=== PATIENT | male | born 1970 | race Caucasian/White ===

== ENCOUNTER 2021-08-20 15:54 | Observation (INO) | payer OTHER, SELFPAY ==
[2021-08-19 08:17] VITALS: BMI 33.2
--- NOTE | 2021-08-19 08:39 | PCM.HP.BLA ---
History and Physical Date of Admission: 08/20/21 [facility] [address] [place] [address] [phone] OFFICE VISITDate of Service: 08/13/21 MR#:[id number]:[id number]: CONNIE GRIMALDORep #:[id number]:1970 Provider: RODOLFO Robledo/Sex: 50/M Location[facility] [place]Signed HPI HPI History of Present Illness Details: This is a 51-year-old gentleman that presents here today for an updated history and physical for an upcoming heart catheterization. He does have a history of coronary artery disease post non-ST myocardial elevation with post RCA PTCA/EBONY at [facility] in November 2019. He also has a history of aortic valve stenosis, hypertension and hyperlipidemia. Patient did undergo a nuclear stress test at an outside hospital which demonstrated positive ECG exercise tolerance test; positive stress myocardial perfusion study with moderate reversible inferolateral perfusion defect compatible with myocardial ischemia. He is scheduled to undergo a heart catheterization on August 20, 2021. Pt notes that his brother recently had an CA. This reminded him that he was due to have stress test done. He then notes that he is now having symptoms. This has been getting worse over the last year and is why we talked about a stress test at his last OV. 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 He does have chest tightness one/off. It is a 3-4/10. It lasts a few minutes after he rests. It is always with activity. Symptoms are similar to what he had with his previous NSTEMI but not as severe. He does not have any lightheadedness/dizziness. He does not have any palpitations. He does not have any edema or claudication. 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: No Accompanied by: None Is patient in pain?: No Allergies No Known Allergies Allergy (Verified 08/13/21 11:30) Medications aspirin 81 mg tablet,delayed release 81 mg PO DAILY 04/18/20 [History Confirmed 08/13/21] lisinopril 20 mg tablet 20 mg PO DAILY 04/19/20 [History Confirmed 08/13/21] scopolamine base 1 mg over 3 days transdermal patch 1 patch TRANSDERMAL Q3D PRN #4 ea 11/01/20 [Rx Confirmed 12/28/20] metoprolol succinate 25 mg tablet,extended release 24 hr 25 mg PO DAILY #90 tab 12/17/20 [Rx Confirmed 08/13/21] nitroglycerin 0.4 mg sublingual tablet 0.4 mg SUBLINGUAL Q5-15M PRN #25 tab 12/17/20 [Rx Confirmed 08/13/21] prasugrel 10 mg tablet 10 mg PO DAILY #90 tab 01/29/21 [Rx Confirmed 08/13/21] PFSH Medical History Aortic valve stenosis Atherosclerotic heart disease of [place] coronary artery without angina pectoris Carpal tunnel syndrome Essential hypertension History of left heart catheterization (LHC) (~11/18/19) History of non-ST elevation myocardial infarction (NSTEMI) Nonrheumatic aortic (valve) stenosis Presence of stent in coronary artery (~11/18/19) Pure hypercholesterolemia Surgical History History of tonsillectomy Presence of coronary angioplasty implant and graft (~11/18/19) Family History Father CAD (coronary artery disease) Mother CAD (coronary artery disease) Social History Smoking Status: Former smoker alcohol intake: current details: 2 drinks per week substance use type: does not use caffeine: Yes (occasional) ROS Const Const: Negative for fatigue, weakness, headache(s), frequent falls, excessive sweating, weight gain or weight loss Eyes Eyes: Negative for blind spots, loss of peripheral vision, transient loss of vision, blurry vision, change in vision or double vision ENT ENT: Negative for headache(s), dizziness, tinnitus, Nosebleed/epistaxis or balance problems Cardio Chest Pain: Yes Palpitations: No Edema: None Muscle aches with walking: None Resp Respiratory: Positive for SOB with activity; Negative for SOB at rest, SOB orthopnea\SOB lying down or Cough GI GI: Negative nausea, vomiting, heartburn, bloating, vomiting blood/hematemesis, bright, red blood in stools or black,tarry stools : Negative for hematuria Musc Musc: Negative for muscle aches/ myalgia, muscle weakness, joint pain or balance problems Skin Skin: Negative rash or wounds Neuro Neuro: Negative for dizziness, lightheadedness, near syncope, syncope, orthostatic symptoms, frequent falls, headache(s), weakness, confusion, memory loss, restless legs, blurry vision or double vision Colt Hematologic/Lymphatic: Negative for easy bleeding or easy bruising Endo Endo: Negative for fatigue, cold intolerance, heat intolerance or excessive sweating Psych Psych: Negative for anxiety or depression Allergy Allergy/Immunology: Negative for rash Cardiology Exam Const Appearance: cooperative, healthy appearing, comfortable, no acute distress, well developed and well groomed Nutritional Appearance: overweight Orientation: alert, awake and oriented x3 Head Head: normal to inspection, normocephalic and atraumatic Ears: hearing grossly normal bilaterally Nose: external nose normal Face and Sinus: face symmetric Eyes Eyelids: eyelids normal Conjunctivae: conjunctivae normal Pupils: PERRL EOM: EOM intact bilaterally Neck Neck: normal visual inspection and full ROM Carotids: normal carotid upstroke Chest Chest inspection: normal inspection of the chest, symmetric chest movement and normal respiratory effort Auscultation: Bilateral: Clear to Auscultation Cardio Palpation: normal PMI Rate: regular rate Rhythm: regular rhythm Heart sounds: S1 normal and S2 normal GI GI: normal to inspection, soft and bowel sounds diminished Neuro General: patient alert, patient awake, patient oriented x3 and moves all extremities Skin Skin: no rashes or lesions noted Extremities Pulses: Normal: Right Radial Pulse and Left Radial Pulse Lower Extremity Edema: None: Bilateral Psych Psychological: normal affect Supplemental Info Supplemental Information Labs: No Data to Display Diagnostics: Electrocardiogram Pulmonary: No Data to Display Assessment and Plan Assessment and Plan (1) Atherosclerotic heart disease of [place] coronary artery without angina pectoris: Status: Chronic Qualifiers: [place] vs. transplanted heart: [place] heart Qualified Code(s): I25.10 - Atherosclerotic heart disease of [place] coronary artery without angina pectoris Orders: Orders: Basic Metabolic Profile (BMP) 08/13/21 Comprehensive Metabolic Profil 08/13/21 Lipid Profile 08/13/21 Prothrombin Time w/INR 08/13/21 CBC W/Diff, Automated 08/13/21 Darian REYNOLDS PA: With pts abnormal stress agustín would like to proceed with Diagnostic heart cath. He will continue with aggressive medical management. Based on cath medications may be adjusted. Patient Instructions: Nothing to eat or drink after midnight With a small sip of water take your morning medications. 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 If you need a stent you will spend the night. Get your labs and CXR done this week. (2) Pure hypercholesterolemia: Status: Chronic Orders: Orders: 12 Lead EKG performed by BMS 08/13/21 Basic Metabolic Profile (BMP) 08/13/21 Comprehensive Metabolic Profil 08/13/21 Lipid Profile 08/13/21 Prothrombin Time w/INR 08/13/21 CBC W/Diff, Automated 08/13/21 (3) Essential hypertension: Status: Chronic Orders: Orders: Basic Metabolic Profile (BMP) 08/13/21 Comprehensive Metabolic Profil 08/13/21 Lipid Profile 08/13/21 Prothrombin Time w/INR 08/13/21 CBC W/Diff, Automated 08/13/21 Darian REYNOLDS, PA: Blood pressure is well controlled on current medications, we do not recommend any changes at this time. (4) Aortic valve stenosis: Status: Inactive Qualifiers: Cardiac valve disease etiology: nonrheumatic Qualified Code(s): I35.0 - Nonrheumatic aortic (valve) stenosis Comment: possible bicuspid aortic valve Orders: Orders: Basic Metabolic Profile (BMP) 08/13/21 Comprehensive Metabolic Profil 08/13/21 Lipid Profile 08/13/21 Prothrombin Time w/INR 08/13/21 CBC W/Diff, Automated 08/13/21 (5) Abnormal stress test: Status: Acute Orders: Orders: Basic Metabolic Profile (BMP) 08/13/21 Comprehensive Metabolic Profil 08/13/21 Lipid Profile 08/13/21 Prothrombin Time w/INR 08/13/21 CBC W/Diff, Automated 08/13/21 Chest PA and Lateral 08/13/21 (6) Nonrheumatic aortic (valve) stenosis: Status: Acute Comment: Mild/trileaflet per ECHO 08/06/21 Orders: Orders: Basic Metabolic Profile (BMP) 08/13/21 Comprehensive Metabolic Profil 08/13/21 Lipid Profile 08/13/21 Prothrombin Time w/INR 08/13/21 CBC W/Diff, Automated 08/13/21 Plan - Marilee REYNOLDS, PA: This is mild, will monitor with echocardiograms. Plan Details Additional Comments: Thank you for allowing me to participate in the care of your patient. Please don't hesitate to call if any issues arise. This note was generated using a voice recognition system and there may be incorrect words, spelling or punctuation that were not noted when reviewing the office note prior to saving. Follow Up: 6 Weeks (MMM) Coding Level of Care Code Off vis,est,level 4 Diagnoses Atherosclerotic heart disease of [place] coronary artery without angina pectoris I25.10 [place] vs. transplanted heart: [place] heart Pure hypercholesterolemia E78.00 Essential hypertension I10 Aortic valve stenosis I35.0 Cardiac valve disease etiology: nonrheumatic Abnormal stress test R94.39 Nonrheumatic aortic (valve) stenosis I35.0 Coding Level of Care Code Off vis,est,level 4 Diagnoses Atherosclerotic heart disease of [place] coronary artery without angina pectoris I25.10 [place] vs. transplanted heart: [place] heart Pure hypercholesterolemia E78.00 Essential hypertension I10 Aortic valve stenosis I35.0 Cardiac valve disease etiology: nonrheumatic Abnormal stress test R94.39 Nonrheumatic aortic (valve) stenosis I35.0 08/18/21 1013<Electronically signed by Marilee REYNOLDS>Date Marilee REYNOLDS Cosigner Signature:Date (if applicable) CC: Dr. Hansel [facility] MD ~ Assessment & Plan Addt'l Comments Addendum: Echocardiogram: [facility]: 08/06/2021 Impression: Left ventricle normal systolic function with an estimated LVEF 65% Mild concentric LVH Mild aortic valve stenosis (aortic valve area reported at 1.8 cm?) Addendum: 08-20-2021 I have re-examined the patient. There are no clinical changes since date of exam This note was generated using a voice recognition system and there may be incorrect words, spelling or punctuation that were not noted when reviewing the office note prior to saving.
[2021-08-20] VITALS (15 sets, daily range): BP systolic 106–141; BP diastolic 71–93; PULSE 62–85; RESP 16–18; TEMP 36.7–37; O2SAT 96–98
--- NOTE | 2021-08-20 11:35 | CL.D_ITS ---
Patient Name: CONNIE GRIMALDO Study Date: 08/20/2021 Performing: Jorge Saldana MD Ht: 66.14 inches 168 cm : 1970 Wt: 205.03 lbs 93 kg Age: 50 Gender: male BSA: 2.02 PROCEDURE(S) PERFORMED IC12-(93462/C9600)EBONY W/WO PTCA, SINGLE CORONARY ARTERY DC02-([id number])LHC/COR CLINICAL PROFILE AND INDICATIONS Indications: Worsening Angina Heart Failure: None Stress/Imaging Date: 08/06/2021tress Test with SPECT MPI: Positive Intermediate Risk Angina Classification Anginal Classification w/in 2 Weeks: CCS III CAD Presentations: Other: worsening angina CONCLUSIONS [place] Multivessel CAD RCA: stent: patent RECOMMENDATIONS Risk factor modification Medical therapy Referred for immediate PCI DESCRIPTION OF PROCEDURE The patient arrived to the procedure lab. The risks and benefits of the procedure as well as a full d escription of our services here and current unavailability of surgical backup were fully explained to the patient and/or their significant other prior to the catheterization. The Timeout was completed, verifying the correct patient and procedure. The patient's procedural site was prepped and draped in the usual fashion. Local anesthetic was given subcutaneously to right radial region with Lidocaine 2% . Using a modified Seldinger technique, arterial access was obtained via the right radial artery, a 6 Fr sheath was inserted. Left Coronary Artery selective angiography was performed in multiple views u sing a 5 Fr. JL3.5 catheter. Right Coronary Artery selective angiography was then performed in multip le views using a 5 Fr. JR 4 catheter. Right Coronary Artery selective angiography was then performed in multiple views using a 6 Fr. JR 4-125cm catheter.The arterial sheath was pulled and a TR Band was applied for hemostasis. 12cc air inserted. CORONARY ANGIOGRAPHY DOMINANCE: Right Dominant LEFT HEART ASSESSMENT Left Ventricular Ejection Fraction: Not assessed LEFT MAIN: Angiographically normal LEFT ANTERIOR DESCENDING ARTERY: Mild luminal irregularities MID LAD: 25 % Stenosis DIAGONAL 1: Proximal - diffuse: 25 - 50 % Stenosis CIRCUMFLEX ARTERY: MID CIRC: 90 % Stenosis RIGHT CORONARY ARTERY: PROX RCA: eccentric: 25 % Stenosis DISTAL RCA: Previously placed stent is patent COMPLICATIONS No Complications PROCEDURE MEDICATIONS Fentanyl 50 mcg IV Versed 1 mg IV Fentanyl 50 mcg IV Versed 1 mg IV Oxygen: 2 L/min via nasal cannula Heparin 7000 unit(s) IV 08/20/2021 10:52:52 Nitro 200 mcg IC 08/20/2021 11:23:38 SUMMARY OF HEMODYNAMIC DATA Time AIR REST ECG 08:57:03 Art 122/72 (86) 10:07:51 AO 113/74 (92) SA 10:23:34 Signed By Jorge Saldana MD On 08/20/2021 11:34:36 AM Jorge Saldana MD
--- NOTE | 2021-08-20 11:46 | PCI.CARDCATH ---
PCI Cardiac Cath Report PCI Report: Procedure performed; 1 successful PCI of 90% stenosis of the mid left circumflex artery With predilatation using 2 x 12 mm balloon, followed by placement of drug-eluting stent 3 x 15 mm EBONY/Orsiro with no residual stenosis, post procedure 0% And maintenance of PATY-3 flow pre and post procedure 2. Placement of TR band to the right radial artery to close the right radial artery arteriotomy site Consent; Risk and benefits of procedure explained in detail to the patient elected to proceed informed consent obtained. Preprocedure diagnosis; This is a 50-year-old patient seen and evaluated by his primary switch coupler Dr. Saldana Patient had symptoms of chest pain and has abnormal nuclear stress test which is positive in the left circumflex distribution Patient had history of CAD with prior PCI and stent to the RCA in [place] in 2019 Has been on dual antiplatelet therapy with aspirin and prasugrel Based on his clinical presentation he underwent cardiac catheterization today Finding of cardiac cath reviewed and discussed Left main angiographically normal, left anterior descending had mild luminal irregularity with the mid LAD had around 25% stenosis The diagonal branch D1 proximally had diffuse 25 to 50% stenosis The circumflex artery had a mid circumflex 90% stenosis RCA proximal RCA eccentric 25% stenosis of the distal RCA previously placed stent is patent. Patient also has a echocardiogram which showed LV function is preserved with mild aortic stenosis Interventional plan and equipment: 1. 6 Scottish EBU 3.5 guide catheter 2. 0.014 BMW universal straight 190 cm 3. 0.014 run-through extra floppy 180 cm straight 4. 2 x 12 mm Emerge balloon 5. 3 x 15 mm drug-eluting stent/EBONY/Orsiro Procedure in detail; Patient was given additional 7000 units of heparin in the Fiber Analyst, prior to that he was on prasugrel and aspirin today in addition to 3000 units of heparin was given through the right radial artery sheath We proceed under fluoroscopic guidance with the 6 Scottish 3.5 EBU guide catheter advanced ascending aorta cannulated the left main without difficulty Following this we will proceed with the guidewire across the lesion in 90% stenosis of the mid circumflex artery there was tortuosity on the subclavian right subclavian as well in the right axillary and and in the circumflex artery requiring to use a michael wire which is 0.014 run-through guidewire Then we were able to proceed with the balloon 2 x 12 mm Emerge balloon across the lesion predilated and then followed by placement of a drug-eluting stent 3 x 15mm with 16 DEANNA and achieve an excellent result ACT level acceptable 275. Following this all catheter removed patient remained stable with no complication he does not have any symptoms of chest pain and the cardiac cath lab technologist were within normal Conclusion successful PCI of a focal high-grade stenosis 90% of the mid circumflex with predilatation and placement of drug-eluting stent as a specified Recommendations; patient to continue on DAPT prasugrel 10 mg in addition to low-dose aspirin he been already on prasugrel from 2019 following the stent placement in the RCA at [place]. And he been tolerating it well with no history of bleeding Patient will be scheduled for phase 1 cardiac rehab program 3. Patient to follow-up with his primary switch coupler Dr. Saldana for continuation of cardiac care. Grant Aj MD,FACC,[facility]
--- NOTE | 2021-08-20 12:00 | EKG12_ITS ---
Test Reason : PCI Blood Pressure : / mmHG Vent. Rate : 061 BPM Atrial Rate : 061 BPM P-R Int : 130 ms QRS Dur : 090 ms QT Int : 414 ms P-R-T Axes : 017 056 027 degrees QTc Int : 416 ms Normal sinus rhythm Normal ECG Confirmed by MADDISON HOFF, VARGAS ([id number]), newspaper managing editor ABDON ONEIL ([id number]) on 08/29/2021 1:28:56 PM Referred By: PM Confirmed By:VARGAS WASHBURN MD
[2021-08-20] MEDS: 0.9% Normal Saline 1,000 ML 75 ML IV (12:33)
--- NOTE | 2021-08-20 13:42 | CRPHASE1 ---
Patient Communication Former Patient:: Phase II PHII Cardiac Rehab Discussed with Patient:: Yes Guide to Cardiac Rehab Given to Patient:: Yes Cardiac Rehab Facility Choice List Given to Patient:: Yes Choice Program Other:: Communication Given to Rohit Cameron [employer] Specialist:: Grant Aj Refer Phase II Cardiac Rehab:: Yes Sessions:: 36 sessions - 3 days/wk, 12 weeks Cardiac Rehabilitation Info Cardiac Rehabilitation Program Information: Cardiac Rehabilitation is important for patients like you who are recovering from a heart problem. Cardiac rehabilitation programs are recognized as integral to the continued care of the patient with coronary heart disease. The cardiac rehabilitation program is designed to optimize a patient's physical, psychological, and social functioning. Health patient care provider work in cardiac rehabilitation programs and assist you with getting the treatments you need to get stronger and healthier - like exercise, healthy eating habits, and medications. Cardiac rehabilitation has been show to help people with heart problems live longer and have better life enjoyment than people who do not go to cardiac rehabilitation. Please contact the Cardiac Rehabilitation Program at [facility] at in two weeks if you have not heard from them.
--- NOTE | 2021-08-20 13:44 | CRPH1.INST_ITS ---
General Education CAD and cardiac anatomy and function:: Patient communicates acknowledgment, Family communicates acknowledgment Explanation of diagnoses and procedures:: Patient communicates acknowledgment, Family communicates acknowledgment Sign/Symptoms of [place]:: Patient communicates acknowledgment, Family communicates acknowledgment Antiplatelet therapy: Patient communicates acknowledgment, Family communicates acknowledgment Proper use of NTG-SL: Patient communicates acknowledgment, Family communicates acknowledgment Emergency procedures and activation of EMS: Patient communicates acknowledgment, Family communicates acknowledgment Compliance of all prescribed medications: Patient communicates acknowledgment, Family communicates acknowledgment Smoking Patient Nicotine/Smoking Risk Factors Are:: Non-smoker Recommendations Include:: Previous smoker; encourage continued cessation Nicotine/Smoking Response Code:: Patient communicates acknowledgment, Family communicates acknowledgment Dyslipidemia Patient Dyslipidemia Risk Factors Are:: Total Cholesterol, Triglycerides, HDL, LDL Recommendations Include:: Lipid profile not available Dyslipidemia Response Code:: Patient communicates acknowledgment, Family communicates acknowledgment Overweight/Obesity Patient Overweight/Obesity Risk Factors Are:: Obesity - > or = 30 Recommendations Include:: Weight loss of 5-10%, Reduced calorie diet, Exercise 5-7 times/week Overweight/Obesity:: Patient communicates acknowledgment, Family communicates acknowledgment Hypertension Recommendations Include:: Maintain BP <130/85, Decrease/maintain normal body weight, Moderation of ETOH Hypertension:: Patient communicates acknowledgment, Family communicates acknowledgment Heart Disease Patient Heart Disease Risk Factors Are:: Previous cardiac event Recommendations Include:: Educated family members of their risk Heart Disease Response Code:: Patient communicates acknowledgment, Family communicates acknowledgment Diabetes Patient Diabetes Risk Factors Are:: No documented hx of diabetes Sedentary Patient Sedentary Risk Factors Are:: Lack of regular exercise Recommendations Include:: Aerobic exercise 5-7 times/week for 20-30 minutes continuously, Benefits of regular exercise, Discussed home walking program, Mo nitored Outpatient Cardiac Rehab Sedentary Response Code:: Patient communicates acknowledgment, Family communicates acknowledgment
[2021-08-21 03:31] VITALS: PULSE 59
[2021-08-21 03:50] VITALS: BP 117/74; PULSE 68; RESP 16; TEMP 36.8; O2SAT 97
[2021-08-21 05:43] LABS: Absolute Lymphocyte Count 1.67 X10^3/uL (0.83-4.51); Absolute Neutrophil Count 5.1 X10^3/uL (2.0-7.7); Basophil# 0.05 X10^3/uL; Basophil% 0.6 % (0-1); Eosinophil# 0.22 X10^3/uL; Eosinophils% 2.7 % (0-5); Hematocrit 40.6 % (40-54); Hemoglobin 14.2 g/dL (13.0-16.5); Lymphocyte # 1.67 X10^3/ul (0.83-4.51); Lymphocyte % 20.7 % (19-41); Mean Corpuscular Hgb 32.8 pg (27.0-32.0); Mean Corpuscular Volume 93.8 fL (80-94); Mean Platelet Vol. 9.9 fl (6.2-12.0); Monocyte# 1.03 X10^3/uL; Monocyte% 12.7 % (0-10); NRBC Flagged by Analyzer 0 % (0-5); Neutrophil # 5.08 X10^3/uL (2.7-7.7); Neutrophil % 62.9 % (47-70); Platelet Count 144 K/mm3 (150-450); RBC Distribution Width CV 11.9 % (11.6-14.6); Red Blood Count 4.33 M/mm3 (4.6-6.2); White Blood Count 8.1 K/mm3 (4.4-11.0)
--- NOTE | 2021-08-21 05:55 | EKG12_ITS ---
Test Reason : PCI Blood Pressure : / mmHG Vent. Rate : 068 BPM Atrial Rate : 068 BPM P-R Int : 130 ms QRS Dur : 084 ms QT Int : 406 ms P-R-T Axes : 029 046 036 degrees QTc Int : 431 ms Normal sinus rhythm Normal ECG Confirmed by MADDISON HOFF, VARGAS ([id number]), index editor ABDON ONEIL ([id number]) on 08/29/2021 1:32:45 PM Referred By: MADDISON Confirmed By:VARGAS WASHBURN MD
[2021-08-21 06:20] LABS: AST(SGOT) 55 U/L (15-37); Alanine Aminotransfer ALT/SGPT 73 U/L (16-61); Albumin, Serum 3.3 g/dL (3.2-5.0); Alkaline Phosphatase 61 U/L (45-117); Anion Gap 4 (5-15); BUN 10 mg/dL (7-18); BUN/Creat Ratio 12.4 RATIO (10-20); Chloride 105 mmol/L (98-107); Creatinine, Serum 0.81 mg/dL (0.70-1.30); EST Glomerular Filtration Rate 108 mL/min (>60); Est Glom Filt Rate - Afr Amer 131 mL/min (>60); Estimated Creatinine Clearance 99.55 ml/min; Globulin 3.3 g/dL (2.2-4.2); Glucose 130 mg/dL (74-106); Potassium 3.8 mmol/L (3.5-5.1); Protein, Total 6.6 g/dL (6.4-8.2); Sodium Level 135 mmol/L (136-145)
[2021-08-21 07:05] VITALS: PULSE 54
[2021-08-21 07:23] VITALS: O2SAT 98
--- NOTE | 2021-08-21 07:40 | PCM.DC ---
Discharge Instructions Diet Discharge Diet: Low fat / Low cholesterol Activity Discharge Activity: May Not Drive (x 48 hours), May Shower (Today) and May Take a Tub Bath (x 7 days) Return to work on:: 08/24/21 May resume sexual activity in: 1-2 weeks Weight Bearing Status: - (avoid heavy exertional activity x 1 week) Dressing / Incision Call your doctor if your incision/area has: Continuous Slow Oozing, Sudden Increased Bleeding, Increased Pain/ Swelling, Increased Redness, Foul Smelling Discharge and Swelling at the incision site Call your doctor if you observe: Fever of 101 or Higher, Shortness of breath, Fainting spells, Chest pain and Increased palpitations (irregular heartbeat) Remove Dressing in: 1 day Cleanse incision/area with: Soap & Water Follow Up Care Please Follow Up With: Jorge Saldana MD When: [facility] Office: 09/24/2021: 3:30 PM with RODOLFO Salinas Test Results: Test results from this visit will be discussed in further detail at your follow-up appointment, if applicable. Discharge Plan Admission Admit Date/Time: 08/20/21 15:54 Primary Reason for Your Visit: CAD; s/p PCI; Abnormal Stress Test; Cardiac Catheterization Attending Provider: Jorge Saldana Primary Care Provider: Hansel Hall Discharge Orders/Prescriptions Prescriptions: New pravastatin 40 mg Tablet 40 mg PO QHS Qty: 30 RF: 6 Continued lisinopril 20 mg tablet 20 mg PO DAILY RF: 0 aspirin [Adult Low Dose Aspirin] 81 mg tablet,delayed release (DR/EC) 81 mg PO DAILY RF: 0 scopolamine base 1 mg over 3 days patch 3 day 1 patch transdermal Q3D PRN (Reason: motion sickness) Qty: 4 RF: 0 metoprolol succinate 25 mg tablet extended release 24 hr 25 mg PO DAILY Qty: 90 RF: 3 nitroglycerin [Nitrostat] 0.4 mg tablet, sublingual 0.4 mg SUBLINGUAL Q5-15M PRN (Reason: chest pain) Qty: 25 RF: 0 prasugrel [Effient] 10 mg tablet 10 mg PO DAILY Qty: 90 RF: 3 Referrals / Follow Up: Hansel Hall MD [Primary Care Provider] - Jorge Saldana MD [STAFF PHYSICIAN] -
--- NOTE | 2021-08-21 07:48 | DS.PCM_ITS ---
Providers Date of Admission: 08/20/21 Date of Discharge: 08/21/21 Primary Care Physician: Dr. Hansel Hall MD Reason For Visit: ABN STRESS Diagnosis Discharge Diagnosis (1) Atherosclerotic heart disease of [place] coronary artery without angina pectoris: Status: Chronic Code(s): I25.10 - Atherosclerotic heart disease of [place] coronary artery without angina pectoris Qualifiers: [place] vs. transplanted heart: [place] heart Qualified Code(s): I25.10 - Atherosclerotic heart disease of [place] coronary artery without angina pectoris (2) Presence of stent in coronary artery: Status: Chronic Code(s): Z95.5 - Presence of coronary angioplasty implant and graft (3) Pure hypercholesterolemia: Status: Chronic Code(s): E78.00 - Pure hypercholesterolemia, unspecified (4) Essential hypertension: Status: Chronic Code(s): I10 - Essential (primary) hypertension (5) Nonrheumatic aortic (valve) stenosis: Status: Acute Code(s): I35.0 - Nonrheumatic aortic (valve) stenosis Medications at Discharge Home Medications aspirin 81 mg tablet,delayed release 81 mg PO DAILY 04/18/20 lisinopril 20 mg tablet 20 mg PO DAILY 04/19/20 scopolamine base 1 mg over 3 days transdermal patch 1 patch TRANSDERMAL Q3D PRN #4 ea 11/01/20 metoprolol succinate 25 mg tablet,extended release 24 hr 25 mg PO DAILY #90 tab 12/17/20 nitroglycerin 0.4 mg sublingual tablet 0.4 mg SUBLINGUAL Q5-15M PRN #25 tab 12/17/20 prasugrel 10 mg tablet 10 mg PO DAILY #90 tab 01/29/21 pravastatin 40 mg PO QHS #30 tab 08/21/21 Hospital Course Operations None Procedures Cardiac catheterization and - (Cardiac Intervention: PCI) Summary of Care Provided Minutes Spent on Discharge: 45 Hospital Course: The patient presented to [facility] on 08-20-2021 based upon concerns of a history of CAD, status post previous PCI, with an abnormal stress nuclear imaging study for further evaluation with diagnostic cardiac cat heterization. The patient underwent diagnostic cardiac catheterization and was found to have his previous RCA PCI stent/stent site to be patent, however, the patient was noted to have angiographically significant appearing CAD in the LCx distribution. He subsequently underwent LCx PCI/stent. He was monitored overnight. On this day he was symptomatically and hemodynamically stable for release home for continued outpatient cardiovascular follow-up. Physical Exam Const alert, oriented x3 and no apparent distress General Appearance: cooperative, comfortable, well kempt and well developed HEENT normocephalic, head/scalp atraumatic and hearing grossly normal bilaterally Eyes PERRL, EOMs intact bilaterally and conjunctivae normal Neck full ROM Chest Chest: symmetrical chest wall rise Resp normal respiratory effort and normal air movement Cardio regular rate, regular rhythm, S1 normal heart sound and S2 normal heart sound GI normal to inspection, nondistended, normoactive bowel sounds Extremity no pedal edema Peripheral Pulses: Yes radial pulses present right (No bruits: No hematoma) 2+ Skin no rashes or lesions noted Neuro oriented x3, moves all extremities, no focal motor deficits and no sensory deficits noted Psych mental status grossly normal Weight / BMI Weight Weight: 206 lb Body Mass Index (BMI) 33.2 ABG / Lab / Microbiology Data Result Diagrams: 08/21/21 05:34 08/21/21 05:34 Laboratory: Laboratory Results - last 24 hr 08/21/21 05:34: WBC 8.1, RBC 4.33 L, Hgb 14.2, Hct 40.6, MCV 93.8, MCH 32.8 H, MCHC 35.0, RDW Std Deviation 41.0, RDW Coeff of [place] 11.9, Plt Count 144 L, MPV 9.9, Immature Gran % (Auto) 0.400, Neut % (Auto) 62.9, Lymph % (Auto) 20.7, [place] % (Auto) 12.7 H, Eos % (Auto) 2.7, Baso % (Auto) 0.6, Absolute Neuts (auto) 5.1, Absolute Lymphs (auto) 1.67, Nucleated RBC % 0 08/21/21 05:34: Sodium 135 L, Potassium 3.8, Chloride 105, Carbon Dioxide 26.0, Anion Gap 4 L, BUN 10, Creatinine 0.81, Estim Creat Clear Calc 99.55, Est GFR (MDRD) Af Amer 131, Est GFR (MDRD) Non-Af 108, BUN/Creatinine Ratio 12.4, Glucose 130 H, Calcium 8.0 L, Total Bilirubin 0.60, AST 55 H, ALT 73 H, Alkaline Phosphatase 61, Total Protein 6.6, Albumin 3.3, Globulin 3.3, Albumin/Globulin Ratio 1.0 Cardiac catheterization: 08-20-2021 CONCLUSIONS [place] Multivessel CAD RCA: stent: patent RECOMMENDATIONS Risk factor modification Medical therapy Referred for immediate PCI DESCRIPTION OF PROCEDURE The patient arrived to the procedure lab. The risks and benefits of the procedure as well as a full description of our services here and current unavailability of surgical backup were fully explained to the patient and/or their significant other prior to the catheterization. The Timeout was completed, verifying the correct patient and procedure. The patient's procedural site was prepped and draped in the usual fashion. Local anesthetic was given subcutaneously to right radial region with Lidocaine 2%. Using a modified Seldinger technique, arterial access was obtained via the right radial artery, a 6Fr sheath was inserted. Left Coronary Artery selective angiography was performed in multiple views using a 5 Fr. JL3.5 catheter. Right Coronary Artery selective angiography was then performed in multiple views using a 5 Fr. JR 4 catheter. Right Coronary Artery selective angiography was then performed in multiple views using a 6 Fr. JR 4-125cm catheter.The arterial sheath was pulled and a TR Band was applied for hemostasis. 12cc air inserted. CORONARY ANGIOGRAPHY DOMINANCE: Right Dominant LEFT HEART ASSESSMENT Left Ventricular Ejection Fraction: Not assessed LEFT MAIN: Angiographically normal LEFT ANTERIOR DESCENDING ARTERY: Mild luminal irregularities MID LAD: 25 % Stenosis DIAGONAL 1: Proximal - diffuse: 25 - 50 % Stenosis CIRCUMFLEX ARTERY: MID CIRC: 90 % Stenosis RIGHT CORONARY ARTERY: PROX RCA: eccentric: 25 % Stenosis DISTAL RCA: Previously placed stent is patent Cardiac PCI: LCx: PTCA/EBONY COMPLICATIONS No Complications D/C Instructions Discharge Diet: Low fat / Low cholesterol Return to work on: 08/24/21 May resume sexual activity in: 1-2 weeks Weight Bearing Status: - (avoid heavy exertional activity x 1 week) Call your doctor if your incision/area has: Continuous Slow Oozing, Sudden Increased Bleeding, Increased Pain/ Swelling, Increased Redness, Foul Smelling Discharge and Swelling at the incision site Call your doctor if you observe: Fever of 101 or Higher, Shortness of breath, Fainting spells, Chest pain and Increased palpitations (irregular heartbeat) Cleanse incision/area with: Soap & Water Please Follow Up With: Jorge Saldana MD When: [facility] Office: 09/24/2021: 3:30 PM with RODOLFO Salinas Meaningful Use Info Meaningful Use Diagnoses (Choose all that apply): None applicable Discharge Plan Admission Admit Date/Time: 08/20/21 15:54 Primary Reason for Your Visit: CAD; s/p PCI; Abnormal Stress Test; Cardiac Catheterization Attending Provider: Jorge Saldana Primary Care Provider: Hansel Hall Discharge Orders/Prescriptions Prescriptions: New pravastatin 40 mg Tablet 40 mg PO QHS Qty: 30 RF: 6 Continued lisinopril 20 mg tablet 20 mg PO DAILY RF: 0 aspirin [Adult Low Dose Aspirin] 81 mg tablet,delayed release (DR/EC) 81 mg PO DAILY RF: 0 scopolamine base 1 mg over 3 days patch 3 day 1 patch transdermal Q3D PRN (Reason: motion sickness) Qty: 4 RF: 0 metoprolol succinate 25 mg tablet extended release 24 hr 25 mg PO DAILY Qty: 90 RF: 3 nitroglycerin [Nitrostat] 0.4 mg tablet, sublingual 0.4 mg SUBLINGUAL Q5-15M PRN (Reason: chest pain) Qty: 25 RF: 0 prasugrel [Effient] 10 mg tablet 10 mg PO DAILY Qty: 90 RF: 3 Referrals / Follow Up: Hansel Hall MD [Primary Care Provider] - Jorge Saldana MD [STAFF PHYSICIAN] -
[2021-08-21 09:07] VITALS: BP 137/92; PULSE 73; RESP 18; TEMP 36.9; O2SAT 99
[2021-08-21 09:10] VITALS: BP 137/92; PULSE 73
[2021-08-21] MEDS: Lisinopril 20 MG Tablet PO (09:10)
[2021-08-21] MEDS: Metoprolol(XL)Succ 25 MG Tablet PO (09:10)
[2021-08-21] MEDS: Aspirin 81 MG TAB.CHEW PO (09:10)
--- NOTE | 2021-08-21 12:38 | NURSING ---
Reviewed charting with Tangela Hines RN
== END 2021-08-21 07:54 | disposition home or self-care (01) ==
LOC: CLSP 16:19 → PCU 16:19
PROVIDERS: Admitting Provider Internal Medicine Cardiovascular Disease; PCP Orthopaedic Surgery; Visit Provider Internal Medicine Cardiovascular Disease
DX: I25.10 Atherosclerotic heart disease of native coronary artery without angina pectoris (principal); I77.1 Stricture of artery; I10 Essential (primary) hypertension; R94.39 Abnormal result of other cardiovascular function study; E78.5 Hyperlipidemia, unspecified; I35.0 Nonrheumatic aortic (valve) stenosis; Z79.899 Other long term (current) drug therapy; Z79.82 Long term (current) use of aspirin; Z95.5 Presence of coronary angioplasty implant and graft; Z87.891 Personal history of nicotine dependence
CPT/HCPCS: 36415; 80053; 85025; 92928; 93005; 93458; 96360; 96361; 99152; 99153; 99218; C1874; J7030; J7040; Q9967; C1725; C1769; C1887; C1894; C9600; G0378